=== PATIENT | male | born 1940 | race Caucasian/White ===

== ENCOUNTER 2020-08-10 11:04 | Inpatient (IN) | payer OTHER, SELFPAY ==
[~2020-08-10] VITALS: Ht 182.9 cm; Wt 89.8 kg
[~2020-08-10 11:04] MED LIST: ASPI-1155 PO; LOSA25TA3 PO; METO100T PO; TRAM50TA92 PO; vit b12; vit d3 PO
[2020-08-10 11:24] VITALS: BP_SYST 92
[2020-08-10 12:49] LABS: BASOPHILS % (AUTO) 0.6 % (0.0-2.0); EOSINOPHILS % (AUTO) 0.1 % (0.0-4.0); HEMATOCRIT 38.4 % (36-54); HEMOGLOBIN 12.4 g/dL (14.0-18.0); LYMPHOCYTES # (AUTO) 0.5 K/uL (1.0-5.5); LYMPHOCYTES % (AUTO) 5.4 % (20.5-51.5); MEAN CORPUSCULAR HEMOGLOBIN 32 pg (27-31); MEAN CORPUSCULAR HGB CONC 32 % (32-36); MEAN CORPUSCULAR VOLUME 99 fL (79.0-98.0); MONOCYTES % (AUTO) 11.6 % (1.7-9.3); NEUTROPHILS # (AUTO) 6.9 K/uL (1.8-7.7); NEUTROPHILS % (AUTO) 82.3 % (40.0-70.0); PLATELET COUNT (AUTO) 321 K/uL (130-430); RED BLOOD CELL COUNT(AUTO) 3.88 MIL/uL (4.2-6.2); RED CELL DISTRIBUTION WIDTH 14.5 % (9.0-15.0); WHITE BLOOD COUNT (AUTO) 8.4 K/uL (4.8-10.8)
[2020-08-10 12:56] LABS: ANION GAP 8 (5-15); CALCIUM 8.4 mg/dL (8.4-11.0); CHLORIDE 102 mmol/L (98-107); CREATININE 1.01 mg/dL (0.55-1.30); GLUCOSE 108 mg/dL (70-99); POTASSIUM 3.7 mmol/L (3.5-5.1); SODIUM SERUM 138 mmol/L (136-145); UREA NITROGEN, BLOOD 20 mg/dL (8-21)
[2020-08-10 13:01] LABS: INR 2.4 (0.80-1.20)
[2020-08-10 13:04] LABS: ALANINE AMINOTRANSFERASE 22 U/L (12-78); ALBUMIN 2.5 g/dL (3.4-4.8); ASPARTATE AMINOTRANSFERASE 31 U/L (10-37); BILIRUBIN,DIRECT 0.3 mg/dL (0.0-0.3); LIPASE 93 U/L (73-393); TOTAL BILIRUBIN 0.9 mg/dL (0.0-1.0)
[2020-08-10] MEDS ORDERED: PIPERACILLIN/TAZO 4.5 GM in NS 100 ML IV ONE (14:15)
[2020-08-10] MEDS ORDERED: VANCOMYCIN HCL 1,000 MG in NS 250 ML IV ONE (14:15)
[2020-08-10] MEDS ORDERED: VANCOMYCIN HCL 1000 MG/VIAL IV ONE (14:19)
[2020-08-10] MEDS ORDERED: PIPERACILLIN/TAZOBACTAM 4.5 GM/VIAL (ZOSYN) IV ONE (14:19)
[2020-08-10 17:26] LABS: HEMOGLOBIN 12.4 g/dL (14.0-18.0)
[2020-08-10] MEDS ORDERED: MORPHINE 2 MG/ML INJ. SYRINGE IVP PRN (17:30)
[2020-08-10] MEDS ORDERED: METOCLOPRAMIDE HCL 10 MG/2 ML VIAL IVP PRN (17:30)
[2020-08-10] MEDS ORDERED: ONDANSETRON HCL 4 MG/2 ML VIAL IVP PRN (17:30)
[2020-08-10] MEDS ORDERED: MORPHINE 4 MG/ML INJ. SYRINGE IVP PRN (17:30)
[2020-08-10] MEDS ORDERED: DILT-33 PO (18:10)
[2020-08-10] MEDS ORDERED: HYDR-4272 PO (18:10)
[2020-08-10] MEDS ORDERED: HYDR-1189 PO (18:10)
[2020-08-10] MEDS ORDERED: METO-544 PO (18:10)
[2020-08-10] MEDS ORDERED: WARF3TAB2 PO (18:10)
[2020-08-10] MEDS ORDERED: TRAM50TA2 PO (18:10)
[2020-08-10] MEDS ORDERED: CALC-17 PO (18:10)
[2020-08-10] MEDS ORDERED: ROSU5TAB13 PO (18:10)
[2020-08-10] MEDS ORDERED: PRED5DRO25 (18:10)
[2020-08-10] MEDS ORDERED: metroNIDAZOLE 500 mg/NS 200 ML IV ONE (21:53)
[2020-08-10] MEDS ORDERED: LEVOFLOXACIN 500 MG/D5W 100 ML IV ONE (21:53)
[2020-08-10] MEDS ORDERED: FLU VACC QS2020-21(65UP)/PF 0.7 ML/SYRINGE I.M. PRN (22:00)
[2020-08-10] MEDS: LEVOFLOXACIN 500 MG/D5W 100 ML IV SCH (22:13)
[2020-08-10] MEDS: D5NS 1,000 ML IV SCH (22:13)
[2020-08-10] MEDS: metroNIDAZOLE 500 mg/NS 100 ML IV SCH (22:15)
[2020-08-11 04:05] VITALS: BP_SYST 142
[2020-08-11] MEDS: D5NS 1,000 ML IV SCH ×4 (05:50→20:28)
[2020-08-11] MEDS: metroNIDAZOLE 500 mg/NS 100 ML IV SCH ×3 (05:51→20:27)
[2020-08-11 08:00] VITALS: BP_SYST 137
[2020-08-11] MEDS: LOSARTAN POTASSIUM 25 MG TABLET PO SCH (09:53)
[2020-08-11] MEDS: METOPROLOL TARTRATE 50 MG TABLET PO SCH (09:54)
[2020-08-11 12:00] VITALS: BP_SYST 151
[2020-08-11 16:00] VITALS: BP_SYST 147
[2020-08-11] MEDS: LEVOFLOXACIN 500 MG/D5W 100 ML IV SCH (18:10)
[2020-08-11 20:00] VITALS: BP_SYST 144
[2020-08-12] VITALS: BP_SYST 147
[2020-08-12] MEDS: metroNIDAZOLE 500 mg/NS 100 ML IV SCH ×3 (04:45→20:39)
[2020-08-12] MEDS: D5NS 1,000 ML IV SCH ×2 (04:45→22:12)
[2020-08-12 07:06] LABS: BASOPHILS % (AUTO) 0.5 % (0.0-2.0); EOSINOPHILS % (AUTO) 0.1 % (0.0-4.0); HEMATOCRIT 35.9 % (36-54); LYMPHOCYTES # (AUTO) 0.4 K/uL (1.0-5.5); MEAN CORPUSCULAR HEMOGLOBIN 33 pg (27-31); MEAN CORPUSCULAR HGB CONC 34 % (32-36); MONOCYTES # (AUTO) 0.7 K/uL (0.0-1.0); MONOCYTES % (AUTO) 10.3 % (1.7-9.3); NEUTROPHILS # (AUTO) 5.2 K/uL (1.8-7.7); NEUTROPHILS % (AUTO) 82.1 % (40.0-70.0); PLATELET COUNT (AUTO) 273 K/uL (130-430); RED BLOOD CELL COUNT(AUTO) 3.68 MIL/uL (4.2-6.2); RED CELL DISTRIBUTION WIDTH 14.6 % (9.0-15.0); WHITE BLOOD COUNT (AUTO) 6.3 K/uL (4.8-10.8)
[2020-08-12 07:28] LABS: ANION GAP 8 (5-15); CALCIUM 7.7 mg/dL (8.4-11.0); CHLORIDE 105 mmol/L (98-107); GLUCOSE 110 mg/dL (70-99); SODIUM SERUM 140 mmol/L (136-145); UREA NITROGEN, BLOOD 11 mg/dL (8-21)
[2020-08-12 07:37] LABS: ALANINE AMINOTRANSFERASE 16 U/L (12-78); ALBUMIN 2.1 g/dL (3.4-4.8); ASPARTATE AMINOTRANSFERASE 25 U/L (10-37); LACTATE DEHYDROGENASE 183 U/L (85-227); TOTAL BILIRUBIN 0.6 mg/dL (0.0-1.0)
[2020-08-12 08:00] VITALS: BP_SYST 142
[2020-08-12 08:15] LABS: MEAN CORPUSCULAR VOLUME 97 fL (79.0-98.0)
[2020-08-12 08:29] LABS: POTASSIUM 2.7 mmol/L (3.5-5.1)
[2020-08-12 08:40] LABS: INR 4.3 (0.80-1.20); PROTHROMBIN TIME 42.2 SECS (9.5-12.5)
[2020-08-12 08:53] LABS: C-REACTIVE PROTEIN QUANT 8.7 mg/dL (0-0.5)
[2020-08-12] MEDS ORDERED: POTASSIUM CHLORIDE 20 MEQ TAB.PRT.SR ONE (09:15)
[2020-08-12] MEDS: LOSARTAN POTASSIUM 25 MG TABLET PO SCH (09:16)
[2020-08-12] MEDS: METOPROLOL TARTRATE 50 MG TABLET PO SCH (09:17)
[2020-08-12] MEDS ORDERED: POTASSIUM CHLORIDE 20 MEQ TAB.PRT.SR PO ONE (09:30)
[2020-08-12] MEDS ORDERED: HYDROcodone/ACETAMIN 5-325 MG TAB (NORCO/ VICODIN) PO PRN (11:30)
[2020-08-12 13:21] VITALS: BP_SYST 154
[2020-08-12 16:30] VITALS: BP_SYST 148
[2020-08-12] MEDS: LEVOFLOXACIN 500 MG/D5W 100 ML IV SCH (18:39)
[2020-08-12 20:00] VITALS: BP_SYST 143
[2020-08-13] VITALS: BP_SYST 155
[2020-08-13] MEDS: metroNIDAZOLE 500 mg/NS 100 ML IV SCH ×3 (04:00→20:50)
[2020-08-13 08:00] VITALS: BP_SYST 137
[2020-08-13] MEDS: LOSARTAN POTASSIUM 25 MG TABLET PO SCH (08:54)
[2020-08-13] MEDS: METOPROLOL TARTRATE 50 MG TABLET PO SCH (08:54)
[2020-08-13 11:41] LABS: BASOPHILS % (AUTO) 0.3 % (0.0-2.0); EOSINOPHILS % (AUTO) 0.2 % (0.0-4.0); HEMATOCRIT 39.1 % (36-54); HEMOGLOBIN 12.9 g/dL (14.0-18.0); LYMPHOCYTES # (AUTO) 0.7 K/uL (1.0-5.5); LYMPHOCYTES % (AUTO) 9.2 % (20.5-51.5); MEAN CORPUSCULAR HEMOGLOBIN 32 pg (27-31); MEAN CORPUSCULAR HGB CONC 33 % (32-36); MEAN CORPUSCULAR VOLUME 97 fL (79.0-98.0); MONOCYTES # (AUTO) 0.6 K/uL (0.0-1.0); MONOCYTES % (AUTO) 8.2 % (1.7-9.3); NEUTROPHILS # (AUTO) 6.2 K/uL (1.8-7.7); NEUTROPHILS % (AUTO) 82.1 % (40.0-70.0); PLATELET COUNT (AUTO) 308 K/uL (130-430); RED BLOOD CELL COUNT(AUTO) 4.01 MIL/uL (4.2-6.2); RED CELL DISTRIBUTION WIDTH 14.6 % (9.0-15.0); WHITE BLOOD COUNT (AUTO) 7.6 K/uL (4.8-10.8)
[2020-08-13 12:00] VITALS: BP_SYST 136
[2020-08-13] MEDS ORDERED: CHOLESTYRAMINE/SUCROSE 4 GM/PACKET PO ONE (12:00)
[2020-08-13 12:17] LABS: ANION GAP 5 (5-15); CALCIUM 7.5 mg/dL (8.4-11.0); CHLORIDE 107 mmol/L (98-107); CREATININE 0.76 mg/dL (0.55-1.30); GLUCOSE 123 mg/dL (70-99); POTASSIUM 3.2 mmol/L (3.5-5.1); SODIUM SERUM 138 mmol/L (136-145); UREA NITROGEN, BLOOD 9 mg/dL (8-21)
[2020-08-13 12:23] LABS: ALANINE AMINOTRANSFERASE 19 U/L (12-78); ALBUMIN 2.2 g/dL (3.4-4.8); ASPARTATE AMINOTRANSFERASE 33 U/L (10-37); TOTAL BILIRUBIN 0.7 mg/dL (0.0-1.0)
[2020-08-13] MEDS: D5NS 1,000 ML IV SCH (12:30)
[2020-08-13 16:00] VITALS: BP_SYST 136
[2020-08-13] MEDS: DEXAMETHASONE SOD PHOSPHATE 10 MG/ML VIAL IVP SCH (16:18)
[2020-08-13] MEDS ORDERED: POTASSIUM CHLORIDE 60 MEQ in NS 500 ML IV ONE (17:00)
[2020-08-13 20:00] VITALS: BP_SYST 122
[2020-08-13] MEDS: LEVOFLOXACIN 500 MG/D5W 100 ML IV SCH (20:08)
[2020-08-13] MEDS: CHOLESTYRAMINE/SUCROSE 4 GM/PACKET PO SCH (20:50)
[2020-08-14] VITALS (7 sets, daily range): BP systolic 108–170
[2020-08-14] MEDS: D5NS 1,000 ML IV SCH ×2 (04:09)
[2020-08-14] MEDS: metroNIDAZOLE 500 mg/NS 100 ML IV SCH ×3 (04:10→21:00)
[2020-08-14] MEDS: LOSARTAN POTASSIUM 25 MG TABLET PO SCH (04:12)
[2020-08-14 07:01] LABS: BASOPHILS % (AUTO) 0.2 % (0.0-2.0); HEMATOCRIT 38.9 % (36-54); HEMOGLOBIN 12.8 g/dL (14.0-18.0); LYMPHOCYTES # (AUTO) 0.4 K/uL (1.0-5.5); LYMPHOCYTES % (AUTO) 3.1 % (20.5-51.5); MEAN CORPUSCULAR HEMOGLOBIN 32 pg (27-31); MEAN CORPUSCULAR HGB CONC 33 % (32-36); MEAN CORPUSCULAR VOLUME 97 fL (79.0-98.0); MONOCYTES # (AUTO) 0.6 K/uL (0.0-1.0); MONOCYTES % (AUTO) 5.3 % (1.7-9.3); NEUTROPHILS # (AUTO) 10.3 K/uL (1.8-7.7); NEUTROPHILS % (AUTO) 91.4 % (40.0-70.0); PLATELET COUNT (AUTO) 295 K/uL (130-430); RED CELL DISTRIBUTION WIDTH 14.8 % (9.0-15.0); WHITE BLOOD COUNT (AUTO) 11.3 K/uL (4.8-10.8)
[2020-08-14] MEDS: METOPROLOL TARTRATE 50 MG TABLET PO SCH (08:02)
[2020-08-14 08:03] LABS: ALANINE AMINOTRANSFERASE 15 U/L (12-78); ASPARTATE AMINOTRANSFERASE 23 U/L (10-37); CALCIUM 8.1 mg/dL (8.4-11.0); CHLORIDE 109 mmol/L (98-107); CREATININE 0.87 mg/dL (0.55-1.30); GLUCOSE 128 mg/dL (70-99); LACTATE DEHYDROGENASE 215 U/L (85-227); POTASSIUM 3.8 mmol/L (3.5-5.1); SODIUM SERUM 141 mmol/L (136-145); TOTAL BILIRUBIN 0.6 mg/dL (0.0-1.0); UREA NITROGEN, BLOOD 13 mg/dL (8-21)
[2020-08-14] MEDS: CHOLESTYRAMINE/SUCROSE 4 GM/PACKET PO SCH ×2 (08:03→21:00)
[2020-08-14 08:18] LABS: ANION GAP 10 (5-15)
[2020-08-14] MEDS ORDERED: FUROSEMIDE 20 MG/2 ML VIAL IVP ONE (08:45)
[2020-08-14 10:29] LABS: C-REACTIVE PROTEIN QUANT 11.7 mg/dL (0-0.5)
[2020-08-14] MEDS: DEXAMETHASONE SOD PHOSPHATE 10 MG/ML VIAL IVP SCH (14:07)
[2020-08-14] MEDS: LEVOFLOXACIN 500 MG/D5W 100 ML IV SCH (17:55)
[2020-08-14] MEDS ORDERED: KCL 20 mEq in 100 mL (PREMIX) 100 ML IV ONE (18:00)
[2020-08-14] MEDS ORDERED: MAGNESIUM SULFATE 1 GM/2 ML VIAL IVP ONE (18:00)
[2020-08-14] MEDS ORDERED: MAGNESIUM SULFATE 50 ML IV ONE (18:30)
[2020-08-14] MEDS ORDERED: METOPROLOL TARTRATE 50 MG TABLET PO ONE (18:30)
[2020-08-14] MEDS ORDERED: METOPROLOL TARTRATE 50 MG TABLET ONE (18:34)
[2020-08-14] MEDS: APIXABAN 2.5 MG TABLET PO SCH (21:00)
[2020-08-15] VITALS: BP_SYST 141
[2020-08-15] MEDS: metroNIDAZOLE 500 mg/NS 100 ML IV SCH ×3 (04:45→20:45)
[2020-08-15] MEDS: LOSARTAN POTASSIUM 25 MG TABLET PO SCH (08:07)
[2020-08-15] MEDS: FUROSEMIDE 40 MG TABLET PO SCH (08:07)
[2020-08-15] MEDS: CHOLESTYRAMINE/SUCROSE 4 GM/PACKET PO SCH ×2 (08:08→20:45)
[2020-08-15] MEDS: METOPROLOL TARTRATE 50 MG TABLET PO SCH (08:08)
[2020-08-15 08:13] LABS: BASOPHILS % (AUTO) 0.2 % (0.0-2.0); HEMOGLOBIN 12.7 g/dL (14.0-18.0); LYMPHOCYTES # (AUTO) 0.5 K/uL (1.0-5.5); LYMPHOCYTES % (AUTO) 6.5 % (20.5-51.5); MEAN CORPUSCULAR HEMOGLOBIN 32 pg (27-31); MEAN CORPUSCULAR HGB CONC 33 % (32-36); MEAN CORPUSCULAR VOLUME 97 fL (79.0-98.0); MONOCYTES # (AUTO) 0.8 K/uL (0.0-1.0); MONOCYTES % (AUTO) 9.2 % (1.7-9.3); NEUTROPHILS # (AUTO) 6.9 K/uL (1.8-7.7); NEUTROPHILS % (AUTO) 84.1 % (40.0-70.0); PLATELET COUNT (AUTO) 315 K/uL (130-430); RED BLOOD CELL COUNT(AUTO) 3.92 MIL/uL (4.2-6.2); RED CELL DISTRIBUTION WIDTH 14.7 % (9.0-15.0); WHITE BLOOD COUNT (AUTO) 8.2 K/uL (4.8-10.8)
[2020-08-15 08:15] VITALS: BP_SYST 146
[2020-08-15 09:00] LABS: ALANINE AMINOTRANSFERASE 10 U/L (12-78); ANION GAP 8 (5-15); ASPARTATE AMINOTRANSFERASE 18 U/L (10-37); CALCIUM 8.4 mg/dL (8.4-11.0); CHLORIDE 109 mmol/L (98-107); CREATININE 0.86 mg/dL (0.55-1.30); GLUCOSE 145 mg/dL (70-99); POTASSIUM 3.8 mmol/L (3.5-5.1); SODIUM SERUM 142 mmol/L (136-145); THYROID STIMULATING HORMONE 1.36 uIu/mL (0.36-3.74); TOTAL BILIRUBIN 0.3 mg/dL (0.0-1.0); UREA NITROGEN, BLOOD 18 mg/dL (8-21)
[2020-08-15] MEDS: APIXABAN 2.5 MG TABLET PO SCH (09:16)
[2020-08-15 12:40] VITALS: BP_SYST 129
[2020-08-15 13:13] LABS: CHOLESTEROL 76 mg/dL (<200); HDL CHOLESTEROL 28 mg/dL (>45); LDL CHOLESTEROL 42 mg/dL (<100); TRIGLYCERIDES 41 mg/dL (30-150)
[2020-08-15 13:23] LABS: INR > 9.0 (0.80-1.20); PROTHROMBIN TIME > 90.0 SECS (9.5-12.5)
[2020-08-15] MEDS ORDERED: PHYTONADIONE 10 MG/ML AMP PO ONE (14:00)
[2020-08-15] MEDS: DEXAMETHASONE SOD PHOSPHATE 10 MG/ML VIAL IVP SCH (14:42)
[2020-08-15 16:35] VITALS: BP_SYST 139
[2020-08-15] MEDS: LEVOFLOXACIN 500 MG/D5W 100 ML IV SCH (19:30)
[2020-08-15 20:00] VITALS: BP_SYST 139
[2020-08-16] VITALS (18 sets, daily range): BP systolic 122–153
[2020-08-16] MEDS: metroNIDAZOLE 500 mg/NS 100 ML IV SCH ×3 (03:49→22:09)
[2020-08-16] MEDS ORDERED: FUROSEMIDE 40 MG/4 ML VIAL IVP ONE ×2 (06:00→09:00)
[2020-08-16] MEDS ORDERED: FUROSEMIDE 40 MG/4 ML VIAL ONE (06:17)
[2020-08-16] MEDS: CHOLESTYRAMINE/SUCROSE 4 GM/PACKET PO SCH ×2 (08:24→23:04)
[2020-08-16] MEDS ORDERED: PHYTONADIONE 10 MG/ML AMP PO ONE (08:30)
[2020-08-16 08:54] LABS: ALANINE AMINOTRANSFERASE 7 U/L (12-78); ALBUMIN 2.1 g/dL (3.4-4.8); ANION GAP 7 (5-15); ASPARTATE AMINOTRANSFERASE 17 U/L (10-37); CALCIUM 8.4 mg/dL (8.4-11.0); CHLORIDE 111 mmol/L (98-107); CREATININE 0.81 mg/dL (0.55-1.30); GLUCOSE 152 mg/dL (70-99); POTASSIUM 3.9 mmol/L (3.5-5.1); SODIUM SERUM 142 mmol/L (136-145); TOTAL BILIRUBIN 0.4 mg/dL (0.0-1.0); UREA NITROGEN, BLOOD 22 mg/dL (8-21)
[2020-08-16] MEDS: LOSARTAN POTASSIUM 25 MG TABLET PO SCH (08:58)
[2020-08-16] MEDS: FUROSEMIDE 40 MG TABLET PO SCH (09:00)
[2020-08-16] MEDS: METOPROLOL TARTRATE 50 MG TABLET PO SCH (09:06)
[2020-08-16 13:15] LABS: INR 2.9 (0.80-1.20); PROTHROMBIN TIME 28.5 SECS (9.5-12.5)
[2020-08-16] MEDS: DEXAMETHASONE SOD PHOSPHATE 10 MG/ML VIAL IVP SCH (15:38)
[2020-08-16] MEDS: LEVOFLOXACIN 500 MG/D5W 100 ML IV SCH (21:21)
[2020-08-17] VITALS (22 sets, daily range): BP systolic 128–154
[2020-08-17] MEDS: metroNIDAZOLE 500 mg/NS 100 ML IV SCH (06:28)
[2020-08-17 07:02] LABS: BASOPHILS % (AUTO) 0.2 % (0.0-2.0); HEMATOCRIT 37.5 % (36-54); HEMOGLOBIN 12.4 g/dL (14.0-18.0); LYMPHOCYTES # (AUTO) 0.3 K/uL (1.0-5.5); LYMPHOCYTES % (AUTO) 3.2 % (20.5-51.5); MEAN CORPUSCULAR HEMOGLOBIN 32 pg (27-31); MEAN CORPUSCULAR HGB CONC 33 % (32-36); MEAN CORPUSCULAR VOLUME 96 fL (79.0-98.0); MONOCYTES # (AUTO) 0.7 K/uL (0.0-1.0); MONOCYTES % (AUTO) 7.3 % (1.7-9.3); NEUTROPHILS % (AUTO) 89.3 % (40.0-70.0); PLATELET COUNT (AUTO) 357 K/uL (130-430); RED CELL DISTRIBUTION WIDTH 14.4 % (9.0-15.0)
[2020-08-17 07:09] LABS: INR 1.7 (0.80-1.20); PROTHROMBIN TIME 16.9 SECS (9.5-12.5)
[2020-08-17 07:30] LABS: ALANINE AMINOTRANSFERASE 9 U/L (12-78); ANION GAP 5 (5-15); ASPARTATE AMINOTRANSFERASE 14 U/L (10-37); CALCIUM 7.9 mg/dL (8.4-11.0); CHLORIDE 110 mmol/L (98-107); CREATININE 0.77 mg/dL (0.55-1.30); GLUCOSE 151 mg/dL (70-99); POTASSIUM 3.8 mmol/L (3.5-5.1); SODIUM SERUM 143 mmol/L (136-145); TOTAL BILIRUBIN 0.4 mg/dL (0.0-1.0); UREA NITROGEN, BLOOD 24 mg/dL (8-21)
[2020-08-17] MEDS: DEXAMETHASONE SOD PHOSPHATE 10 MG/ML VIAL IVP SCH (08:37)
[2020-08-17] MEDS: LOSARTAN POTASSIUM 25 MG TABLET PO SCH (08:38)
[2020-08-17] MEDS: METOPROLOL TARTRATE 50 MG TABLET PO SCH (08:39)
[2020-08-17] MEDS: CHOLESTYRAMINE/SUCROSE 4 GM/PACKET PO SCH ×2 (08:39→20:41)
[2020-08-17] MEDS: FUROSEMIDE 40 MG TABLET PO SCH (08:39)
[2020-08-17] MEDS: APIXABAN 2.5 MG TABLET PO SCH (20:40)
[2020-08-18] VITALS (25 sets, daily range): BP systolic 64–158
[2020-08-18] MEDS: LOSARTAN POTASSIUM 25 MG TABLET PO SCH (08:41)
[2020-08-18] MEDS: FUROSEMIDE 40 MG TABLET PO SCH (08:42)
[2020-08-18] MEDS: CHOLESTYRAMINE/SUCROSE 4 GM/PACKET PO SCH ×2 (08:42→21:47)
[2020-08-18] MEDS: METOPROLOL TARTRATE 50 MG TABLET PO SCH (08:42)
[2020-08-18] MEDS: DEXAMETHASONE SOD PHOSPHATE 10 MG/ML VIAL IVP SCH (08:47)
[2020-08-18] MEDS: APIXABAN 2.5 MG TABLET PO SCH (08:47)
[2020-08-18 09:21] LABS: INR 1.6 (0.80-1.20); PROTHROMBIN TIME 16.1 SECS (9.5-12.5)
[2020-08-18] MEDS ORDERED: NOREPINEPHRINE 4 MG/4 ML VIAL IV ONE (17:23)
[2020-08-18] MEDS ORDERED: NACL 0.9% 1,000 ML IV ONE (17:45)
[2020-08-18] MEDS: PROPOFOL DRIP 100 ML IV PRN (19:42)
[2020-08-18 20:29] LABS: INR 1.8 (0.80-1.20); PROTHROMBIN TIME 17.8 SECS (9.5-12.5)
[2020-08-18] MEDS ORDERED: METOPROLOL TARTRATE 5 MG/5 ML VIAL IVP ONE (21:30)
[2020-08-18] MEDS ORDERED: METOPROLOL TARTRATE 5 MG/5 ML VIAL IVP PRN (21:30)
[2020-08-18] MEDS: MORPHINE I.V. DRIP 100 ML IV PRN (21:41)
[2020-08-18] MEDS: NACL 0.9% 1,000 ML IV SCH (23:49)
[2020-08-19] VITALS (30 sets, daily range): BP systolic 94–153
[2020-08-19] MEDS: PIPERACILLIN/TAZO 3.375/DEX-IS 50 ML IV SCH ×3 (06:00→17:00)
[2020-08-19 07:04] LABS: BASOPHILS % (AUTO) 0.1 % (0.0-2.0); EOSINOPHILS % (AUTO) 0.2 % (0.0-4.0); HEMOGLOBIN 12.3 g/dL (14.0-18.0); LYMPHOCYTES # (AUTO) 0.4 K/uL (1.0-5.5); LYMPHOCYTES % (AUTO) 3.1 % (20.5-51.5); MEAN CORPUSCULAR HEMOGLOBIN 32 pg (27-31); MEAN CORPUSCULAR HGB CONC 33 % (32-36); MEAN CORPUSCULAR VOLUME 96 fL (79.0-98.0); MONOCYTES # (AUTO) 1.3 K/uL (0.0-1.0); MONOCYTES % (AUTO) 9.6 % (1.7-9.3); NEUTROPHILS # (AUTO) 12.2 K/uL (1.8-7.7); PLATELET COUNT (AUTO) 373 K/uL (130-430); RED BLOOD CELL COUNT(AUTO) 3.84 MIL/uL (4.2-6.2); RED CELL DISTRIBUTION WIDTH 14.9 % (9.0-15.0)
[2020-08-19 08:07] LABS: ALANINE AMINOTRANSFERASE 8 U/L (12-78); ALBUMIN 1.9 g/dL (3.4-4.8); ANION GAP 6 (5-15); ASPARTATE AMINOTRANSFERASE 17 U/L (10-37); CALCIUM 8.2 mg/dL (8.4-11.0); CHLORIDE 113 mmol/L (98-107); CREATININE 0.88 mg/dL (0.55-1.30); GLUCOSE 165 mg/dL (70-99); POTASSIUM 3.8 mmol/L (3.5-5.1); SODIUM SERUM 145 mmol/L (136-145); TOTAL BILIRUBIN 0.5 mg/dL (0.0-1.0); UREA NITROGEN, BLOOD 30 mg/dL (8-21)
[2020-08-19] MEDS: FUROSEMIDE 40 MG TABLET PO SCH (09:33)
[2020-08-19] MEDS: METOPROLOL TARTRATE 50 MG TABLET PO SCH (09:34)
[2020-08-19] MEDS: CHOLESTYRAMINE/SUCROSE 4 GM/PACKET PO SCH ×2 (09:34→20:23)
[2020-08-19] MEDS: LOSARTAN POTASSIUM 25 MG TABLET PO SCH (09:34)
[2020-08-19] MEDS: DEXAMETHASONE SOD PHOSPHATE 10 MG/ML VIAL IVP SCH (09:35)
[2020-08-19] MEDS: NACL 0.9% 1,000 ML IV SCH (10:59)
[2020-08-19] MEDS: PROPOFOL DRIP 100 ML IV PRN ×2 (11:03→16:58)
[2020-08-19] MEDS: ENOXAPARIN SODIUM 40 MG/0.4 ML SYRINGE SUBCUT SCH (11:08)
[2020-08-20] VITALS (31 sets, daily range): BP systolic 78–174
[2020-08-20] MEDS: PIPERACILLIN/TAZO 3.375/DEX-IS 50 ML IV SCH ×5 (00:01→23:01)
[2020-08-20] MEDS: PROPOFOL DRIP 100 ML IV PRN ×4 (00:47→23:01)
[2020-08-20] MEDS: NACL 0.9% 1,000 ML IV SCH ×2 (03:50→17:47)
[2020-08-20] MEDS: MORPHINE I.V. DRIP 100 ML IV PRN (03:52)
[2020-08-20] MEDS: FUROSEMIDE 40 MG TABLET PO SCH (09:35)
[2020-08-20] MEDS: ENOXAPARIN SODIUM 40 MG/0.4 ML SYRINGE SUBCUT SCH (09:35)
[2020-08-20] MEDS: LOSARTAN POTASSIUM 25 MG TABLET PO SCH (09:36)
[2020-08-20] MEDS: DEXAMETHASONE SOD PHOSPHATE 10 MG/ML VIAL IVP SCH (09:36)
[2020-08-20] MEDS: CHOLESTYRAMINE/SUCROSE 4 GM/PACKET PO SCH ×2 (09:36→20:28)
[2020-08-20] MEDS: METOPROLOL TARTRATE 50 MG TABLET PO SCH (09:40)
[2020-08-20] MEDS ORDERED: ROCURONIUM BROMIDE 10 MG/ML (ZEMURON) IV ONE (12:18)
[2020-08-20] MEDS ORDERED: ETOMIDATE 20 MG/ 10 ML VIAL (AMIDATE) IVP ONE (12:18)
[2020-08-20] MEDS ORDERED: NOREPINEPHRINE 4 MG/4 ML VIAL IV ONE (19:42)
[2020-08-20] MEDS: NOREPINEPHRINE BITARTRATE 8 MG in NS 242 ML IV PRN (20:03)
[2020-08-21] VITALS (32 sets, daily range): BP systolic 98–160
[2020-08-21] MEDS: NACL 0.9% 1,000 ML IV SCH ×2 (04:50→23:57)
[2020-08-21] MEDS: PIPERACILLIN/TAZO 3.375/DEX-IS 50 ML IV SCH ×3 (05:11→23:52)
[2020-08-21] MEDS: PROPOFOL DRIP 100 ML IV PRN ×2 (05:12→15:48)
[2020-08-21 06:40] LABS: BASOPHILS % (AUTO) 0.4 % (0.0-2.0); HEMOGLOBIN 13.4 g/dL (14.0-18.0); LYMPHOCYTES # (AUTO) 0.4 K/uL (1.0-5.5); LYMPHOCYTES % (AUTO) 3.8 % (20.5-51.5); MEAN CORPUSCULAR HEMOGLOBIN 32 pg (27-31); MEAN CORPUSCULAR HGB CONC 33 % (32-36); MEAN CORPUSCULAR VOLUME 97 fL (79.0-98.0); MONOCYTES # (AUTO) 0.8 K/uL (0.0-1.0); MONOCYTES % (AUTO) 8.3 % (1.7-9.3); NEUTROPHILS # (AUTO) 8.7 K/uL (1.8-7.7); NEUTROPHILS % (AUTO) 87.5 % (40.0-70.0); PLATELET COUNT (AUTO) 286 K/uL (130-430); RED BLOOD CELL COUNT(AUTO) 4.14 MIL/uL (4.2-6.2); RED CELL DISTRIBUTION WIDTH 15.1 % (9.0-15.0)
[2020-08-21 08:21] LABS: ALANINE AMINOTRANSFERASE 12 U/L (12-78); ALBUMIN 1.9 g/dL (3.4-4.8); ANION GAP 7 (5-15); ASPARTATE AMINOTRANSFERASE 16 U/L (10-37); CALCIUM 7.7 mg/dL (8.4-11.0); CHLORIDE 112 mmol/L (98-107); CREATININE 0.92 mg/dL (0.55-1.30); GLUCOSE 175 mg/dL (70-99); POTASSIUM 3.6 mmol/L (3.5-5.1); SODIUM SERUM 146 mmol/L (136-145); TOTAL BILIRUBIN 0.8 mg/dL (0.0-1.0); UREA NITROGEN, BLOOD 28 mg/dL (8-21)
[2020-08-21] MEDS: DEXAMETHASONE SOD PHOSPHATE 10 MG/ML VIAL IVP SCH (08:44)
[2020-08-21] MEDS: METOPROLOL TARTRATE 50 MG TABLET PO SCH (08:46)
[2020-08-21] MEDS: LOSARTAN POTASSIUM 25 MG TABLET PO SCH (08:47)
[2020-08-21] MEDS: CHOLESTYRAMINE/SUCROSE 4 GM/PACKET PO SCH ×2 (08:47→20:41)
[2020-08-21] MEDS: FUROSEMIDE 40 MG TABLET PO SCH (08:47)
[2020-08-21] MEDS: ENOXAPARIN SODIUM 40 MG/0.4 ML SYRINGE SUBCUT SCH (08:48)
[2020-08-22] VITALS (29 sets, daily range): BP systolic 90–141
[2020-08-22] MEDS ORDERED: NOREPINEPHRINE 4 MG/4 ML VIAL IV ONE (00:05)
[2020-08-22] MEDS: NOREPINEPHRINE BITARTRATE 8 MG in NS 242 ML IV PRN (00:07)
[2020-08-22] MEDS: PIPERACILLIN/TAZO 3.375/DEX-IS 50 ML IV SCH ×3 (05:07→17:47)
[2020-08-22 06:59] LABS: BASOPHILS % (AUTO) 0.1 % (0.0-2.0); EOSINOPHILS % (AUTO) 0.2 % (0.0-4.0); HEMATOCRIT 38.1 % (36-54); HEMOGLOBIN 12.5 g/dL (14.0-18.0); LYMPHOCYTES # (AUTO) 0.4 K/uL (1.0-5.5); LYMPHOCYTES % (AUTO) 3.6 % (20.5-51.5); MEAN CORPUSCULAR HEMOGLOBIN 32 pg (27-31); MEAN CORPUSCULAR HGB CONC 33 % (32-36); MEAN CORPUSCULAR VOLUME 97 fL (79.0-98.0); MONOCYTES # (AUTO) 1.1 K/uL (0.0-1.0); MONOCYTES % (AUTO) 10.2 % (1.7-9.3); NEUTROPHILS # (AUTO) 9.4 K/uL (1.8-7.7); NEUTROPHILS % (AUTO) 85.9 % (40.0-70.0); PLATELET COUNT (AUTO) 261 K/uL (130-430); RED BLOOD CELL COUNT(AUTO) 3.92 MIL/uL (4.2-6.2); RED CELL DISTRIBUTION WIDTH 15.8 % (9.0-15.0); WHITE BLOOD COUNT (AUTO) 10.9 K/uL (4.8-10.8)
[2020-08-22 07:24] LABS: ALANINE AMINOTRANSFERASE 10 U/L (12-78); ALBUMIN 1.5 g/dL (3.4-4.8); ANION GAP 7 (5-15); ASPARTATE AMINOTRANSFERASE 14 U/L (10-37); CALCIUM 7.5 mg/dL (8.4-11.0); CHLORIDE 117 mmol/L (98-107); CREATININE 0.77 mg/dL (0.55-1.30); GLUCOSE 171 mg/dL (70-99); POTASSIUM 3.9 mmol/L (3.5-5.1); SODIUM SERUM 150 mmol/L (136-145); TOTAL BILIRUBIN 0.6 mg/dL (0.0-1.0); UREA NITROGEN, BLOOD 32 mg/dL (8-21)
[2020-08-22] MEDS: CHOLESTYRAMINE/SUCROSE 4 GM/PACKET PO SCH ×2 (08:46→20:06)
[2020-08-22] MEDS: METOPROLOL TARTRATE 50 MG TABLET PO SCH (08:46)
[2020-08-22] MEDS: LOSARTAN POTASSIUM 25 MG TABLET PO SCH (08:46)
[2020-08-22] MEDS: DEXAMETHASONE SOD PHOSPHATE 10 MG/ML VIAL IVP SCH (08:47)
[2020-08-22] MEDS: FUROSEMIDE 40 MG TABLET PO SCH ×2 (08:47→20:06)
[2020-08-22] MEDS: ENOXAPARIN SODIUM 40 MG/0.4 ML SYRINGE SUBCUT SCH (08:48)
[2020-08-22 08:52] LABS: C-REACTIVE PROTEIN QUANT 0.9 mg/dL (0-0.5)
[2020-08-22 11:17] LABS: ERYTHROCYTE SEDIMENTATION RATE 17 MM/HR (0-15)
[2020-08-22] MEDS: NACL 0.9% 1,000 ML IV SCH ×2 (14:37→17:47)
[2020-08-22] MEDS: MORPHINE I.V. DRIP 100 ML IV PRN (20:08)
[2020-08-23] VITALS (26 sets, daily range): BP systolic 90–174
[2020-08-23] MEDS: PIPERACILLIN/TAZO 3.375/DEX-IS 50 ML IV SCH ×4 (00:12→18:11)
[2020-08-23 07:31] LABS: BASOPHILS % (AUTO) 0.2 % (0.0-2.0); EOSINOPHILS % (AUTO) 0.1 % (0.0-4.0); HEMATOCRIT 38.2 % (36-54); HEMOGLOBIN 12.5 g/dL (14.0-18.0); LYMPHOCYTES # (AUTO) 0.5 K/uL (1.0-5.5); MEAN CORPUSCULAR HEMOGLOBIN 32 pg (27-31); MEAN CORPUSCULAR HGB CONC 33 % (32-36); MEAN CORPUSCULAR VOLUME 97 fL (79.0-98.0); MONOCYTES # (AUTO) 1.4 K/uL (0.0-1.0); MONOCYTES % (AUTO) 12.1 % (1.7-9.3); NEUTROPHILS # (AUTO) 9.5 K/uL (1.8-7.7); NEUTROPHILS % (AUTO) 83.6 % (40.0-70.0); PLATELET COUNT (AUTO) 244 K/uL (130-430); RED BLOOD CELL COUNT(AUTO) 3.95 MIL/uL (4.2-6.2); RED CELL DISTRIBUTION WIDTH 15.5 % (9.0-15.0); WHITE BLOOD COUNT (AUTO) 11.4 K/uL (4.8-10.8)
[2020-08-23 08:28] LABS: ERYTHROCYTE SEDIMENTATION RATE 20 MM/HR (0-15)
[2020-08-23] MEDS: CHOLESTYRAMINE/SUCROSE 4 GM/PACKET PO SCH ×2 (08:48→20:34)
[2020-08-23] MEDS: LOSARTAN POTASSIUM 25 MG TABLET PO SCH (08:49)
[2020-08-23] MEDS: FUROSEMIDE 40 MG TABLET PO SCH (08:50)
[2020-08-23] MEDS: ENOXAPARIN SODIUM 40 MG/0.4 ML SYRINGE SUBCUT SCH (08:51)
[2020-08-23] MEDS: METOPROLOL TARTRATE 50 MG TABLET PO SCH (08:51)
[2020-08-23] MEDS: DEXAMETHASONE SOD PHOSPHATE 10 MG/ML VIAL IVP SCH (08:52)
[2020-08-23 09:09] LABS: ALANINE AMINOTRANSFERASE 23 U/L (12-78); ALBUMIN 1.6 g/dL (3.4-4.8); ANION GAP 7 (5-15); ASPARTATE AMINOTRANSFERASE 31 U/L (10-37); CALCIUM 7.5 mg/dL (8.4-11.0); CHLORIDE 117 mmol/L (98-107); CREATININE 0.72 mg/dL (0.55-1.30); GLUCOSE 176 mg/dL (70-99); SODIUM SERUM 149 mmol/L (136-145); TOTAL BILIRUBIN 0.7 mg/dL (0.0-1.0); UREA NITROGEN, BLOOD 34 mg/dL (8-21)
[2020-08-23 12:24] LABS: C-REACTIVE PROTEIN QUANT 0.6 mg/dL (0-0.5)
[2020-08-23] MEDS: D5W 1,000 ML IV SCH (14:30)
[2020-08-23] MEDS: PROPOFOL DRIP 100 ML IV PRN (18:13)
[2020-08-23] MEDS: FUROSEMIDE 40 MG/4 ML VIAL IVP SCH (20:34)
[2020-08-24] VITALS (32 sets, daily range): BP systolic 96–144
[2020-08-24] MEDS: PIPERACILLIN/TAZO 3.375/DEX-IS 50 ML IV SCH ×4 (00:23→17:57)
[2020-08-24] MEDS: D5W 1,000 ML IV SCH ×2 (00:23→13:21)
[2020-08-24] MEDS: MORPHINE I.V. DRIP 100 ML IV PRN (06:24)
[2020-08-24 06:37] LABS: BASOPHILS % (AUTO) 0.2 % (0.0-2.0); EOSINOPHILS % (AUTO) 0.1 % (0.0-4.0); HEMATOCRIT 34.9 % (36-54); HEMOGLOBIN 11.4 g/dL (14.0-18.0); LYMPHOCYTES # (AUTO) 0.6 K/uL (1.0-5.5); LYMPHOCYTES % (AUTO) 5.6 % (20.5-51.5); MEAN CORPUSCULAR HEMOGLOBIN 32 pg (27-31); MEAN CORPUSCULAR HGB CONC 33 % (32-36); MEAN CORPUSCULAR VOLUME 98 fL (79.0-98.0); MONOCYTES # (AUTO) 1.4 K/uL (0.0-1.0); MONOCYTES % (AUTO) 13.4 % (1.7-9.3); NEUTROPHILS # (AUTO) 8.2 K/uL (1.8-7.7); NEUTROPHILS % (AUTO) 80.7 % (40.0-70.0); PLATELET COUNT (AUTO) 165 K/uL (130-430); RED BLOOD CELL COUNT(AUTO) 3.57 MIL/uL (4.2-6.2); RED CELL DISTRIBUTION WIDTH 15.9 % (9.0-15.0); WHITE BLOOD COUNT (AUTO) 10.2 K/uL (4.8-10.8)
[2020-08-24 07:35] LABS: ALANINE AMINOTRANSFERASE 27 U/L (12-78); ALBUMIN 1.4 g/dL (3.4-4.8); ANION GAP 8 (5-15); ASPARTATE AMINOTRANSFERASE 30 U/L (10-37); CALCIUM 7.7 mg/dL (8.4-11.0); CHLORIDE 112 mmol/L (98-107); CREATININE 0.78 mg/dL (0.55-1.30); GLUCOSE 213 mg/dL (70-99); POTASSIUM 3.7 mmol/L (3.5-5.1); SODIUM SERUM 145 mmol/L (136-145); TOTAL BILIRUBIN 0.6 mg/dL (0.0-1.0); UREA NITROGEN, BLOOD 37 mg/dL (8-21)
[2020-08-24 08:33] LABS: ERYTHROCYTE SEDIMENTATION RATE 18 MM/HR (0-15)
[2020-08-24] MEDS: METOPROLOL TARTRATE 50 MG TABLET PO SCH (11:39)
[2020-08-24] MEDS: LOSARTAN POTASSIUM 25 MG TABLET PO SCH (11:39)
[2020-08-24] MEDS: DEXAMETHASONE SOD PHOSPHATE 10 MG/ML VIAL IVP SCH (11:40)
[2020-08-24] MEDS: FUROSEMIDE 40 MG/4 ML VIAL IVP SCH ×2 (11:41→20:42)
[2020-08-24] MEDS: CHOLESTYRAMINE/SUCROSE 4 GM/PACKET PO SCH ×2 (11:41→20:42)
[2020-08-24] MEDS: ENOXAPARIN SODIUM 40 MG/0.4 ML SYRINGE SUBCUT SCH (11:41)
[2020-08-24 11:51] LABS: C-REACTIVE PROTEIN QUANT 0.8 mg/dL (0-0.5)
[2020-08-24] MEDS: DEXAMETHASONE SOD PHOSPHATE 4 MG/ML VIAL IVP SCH (12:03)
[2020-08-24] MEDS: PROPOFOL DRIP 100 ML IV PRN (15:58)
[2020-08-25] VITALS (35 sets, daily range): BP systolic 105–162
[2020-08-25] MEDS: PIPERACILLIN/TAZO 3.375/DEX-IS 50 ML IV SCH ×5 (00:06→23:49)
[2020-08-25] MEDS: MORPHINE I.V. DRIP 100 ML IV PRN ×2 (02:47→20:52)
[2020-08-25] MEDS: D5W 1,000 ML IV SCH ×2 (06:25→18:58)
[2020-08-25 07:16] LABS: BASOPHILS % (AUTO) 0.2 % (0.0-2.0); HEMOGLOBIN 11.5 g/dL (14.0-18.0)
[2020-08-25 07:20] LABS: EOSINOPHILS % (AUTO) 0.3 % (0.0-4.0); HEMATOCRIT 34.4 % (36-54); LYMPHOCYTES # (AUTO) 0.7 K/uL (1.0-5.5); LYMPHOCYTES % (AUTO) 5.9 % (20.5-51.5); MEAN CORPUSCULAR HEMOGLOBIN 32 pg (27-31); MEAN CORPUSCULAR HGB CONC 34 % (32-36); MEAN CORPUSCULAR VOLUME 96 fL (79.0-98.0); MONOCYTES # (AUTO) 1.4 K/uL (0.0-1.0); MONOCYTES % (AUTO) 11.8 % (1.7-9.3); NEUTROPHILS # (AUTO) 9.8 K/uL (1.8-7.7); NEUTROPHILS % (AUTO) 81.8 % (40.0-70.0); PLATELET COUNT (AUTO) 162 K/uL (130-430); RED BLOOD CELL COUNT(AUTO) 3.59 MIL/uL (4.2-6.2); RED CELL DISTRIBUTION WIDTH 15.5 % (9.0-15.0); WHITE BLOOD COUNT (AUTO) 11.9 K/uL (4.8-10.8)
[2020-08-25] MEDS: LOSARTAN POTASSIUM 25 MG TABLET PO SCH (09:21)
[2020-08-25] MEDS: METOPROLOL TARTRATE 50 MG TABLET PO SCH (09:21)
[2020-08-25] MEDS: CHOLESTYRAMINE/SUCROSE 4 GM/PACKET PO SCH ×2 (09:21→22:02)
[2020-08-25] MEDS: ENOXAPARIN SODIUM 40 MG/0.4 ML SYRINGE SUBCUT SCH (09:22)
[2020-08-25] MEDS: FUROSEMIDE 40 MG/4 ML VIAL IVP SCH ×2 (09:22→22:02)
[2020-08-25] MEDS: DEXAMETHASONE SOD PHOSPHATE 4 MG/ML VIAL IVP SCH (09:26)
[2020-08-25] MEDS ORDERED: METOPROLOL TARTRATE 5 MG/5 ML VIAL IVP PRN (09:45)
[2020-08-25 10:13] LABS: ANION GAP 9 (5-15); CALCIUM 7.5 mg/dL (8.4-11.0); CHLORIDE 107 mmol/L (98-107); CREATININE 0.74 mg/dL (0.55-1.30); GLUCOSE 195 mg/dL (70-99); POTASSIUM 3.6 mmol/L (3.5-5.1); SODIUM SERUM 141 mmol/L (136-145); UREA NITROGEN, BLOOD 38 mg/dL (8-21)
[2020-08-25 12:32] LABS: ERYTHROCYTE SEDIMENTATION RATE 23 MM/HR (0-15)
[2020-08-25 13:23] LABS: C-REACTIVE PROTEIN QUANT 0.6 mg/dL (0-0.5)
[2020-08-26] VITALS (32 sets, daily range): BP systolic 110–157
[2020-08-26] MEDS: PIPERACILLIN/TAZO 3.375/DEX-IS 50 ML IV SCH ×3 (06:04→17:50)
[2020-08-26 06:32] LABS: BASOPHILS % (AUTO) 0.1 % (0.0-2.0); EOSINOPHILS % (AUTO) 0.2 % (0.0-4.0); HEMOGLOBIN 11.2 g/dL (14.0-18.0); LYMPHOCYTES # (AUTO) 0.8 K/uL (1.0-5.5); MEAN CORPUSCULAR HEMOGLOBIN 32 pg (27-31); MEAN CORPUSCULAR HGB CONC 33 % (32-36); MEAN CORPUSCULAR VOLUME 96 fL (79.0-98.0); MONOCYTES # (AUTO) 1.8 K/uL (0.0-1.0); NEUTROPHILS % (AUTO) 79.7 % (40.0-70.0); PLATELET COUNT (AUTO) 154 K/uL (130-430); RED BLOOD CELL COUNT(AUTO) 3.54 MIL/uL (4.2-6.2); RED CELL DISTRIBUTION WIDTH 15.7 % (9.0-15.0); WHITE BLOOD COUNT (AUTO) 12.5 K/uL (4.8-10.8)
[2020-08-26 07:21] LABS: ALANINE AMINOTRANSFERASE 32 U/L (12-78); ALBUMIN 1.3 g/dL (3.4-4.8); ANION GAP 9 (5-15); ASPARTATE AMINOTRANSFERASE 29 U/L (10-37); CALCIUM 7.8 mg/dL (8.4-11.0); CHLORIDE 104 mmol/L (98-107); CREATININE 0.76 mg/dL (0.55-1.30); GLUCOSE 184 mg/dL (70-99); POTASSIUM 3.5 mmol/L (3.5-5.1); SODIUM SERUM 137 mmol/L (136-145); TOTAL BILIRUBIN 0.7 mg/dL (0.0-1.0); UREA NITROGEN, BLOOD 41 mg/dL (8-21)
[2020-08-26 08:59] LABS: ERYTHROCYTE SEDIMENTATION RATE 28 MM/HR (0-15)
[2020-08-26] MEDS ORDERED: DEXAMETHASONE SOD PHOSPHATE 4 MG/ML VIAL IV ONE (09:00)
[2020-08-26] MEDS: CHOLESTYRAMINE/SUCROSE 4 GM/PACKET PO SCH ×2 (09:13→21:00)
[2020-08-26] MEDS: LOSARTAN POTASSIUM 25 MG TABLET PO SCH (09:14)
[2020-08-26] MEDS: METOPROLOL TARTRATE 50 MG TABLET PO SCH (09:14)
[2020-08-26] MEDS: ENOXAPARIN SODIUM 40 MG/0.4 ML SYRINGE SUBCUT SCH (09:16)
[2020-08-26] MEDS: FUROSEMIDE 40 MG/4 ML VIAL IVP SCH ×2 (09:16→21:00)
[2020-08-26] MEDS: D5W 1,000 ML IV SCH (09:20)
[2020-08-26 10:40] LABS: C-REACTIVE PROTEIN QUANT 1.4 mg/dL (0-0.5)
[2020-08-26] MEDS: MORPHINE I.V. DRIP 100 ML IV PRN (11:51)
[2020-08-27] VITALS (32 sets, daily range): BP systolic 79–134
[2020-08-27] MEDS ORDERED: METOPROLOL TARTRATE 5 MG/5 ML VIAL IVP PRN ×2 (04:15)
[2020-08-27] MEDS: PIPERACILLIN/TAZO 3.375/DEX-IS 50 ML IV SCH ×5 (05:17→23:24)
[2020-08-27 06:05] LABS: BASOPHILS % (AUTO) 0.1 % (0.0-2.0); EOSINOPHILS % (AUTO) 0.2 % (0.0-4.0); HEMATOCRIT 34.1 % (36-54); HEMOGLOBIN 11.4 g/dL (14.0-18.0); LYMPHOCYTES # (AUTO) 0.9 K/uL (1.0-5.5); LYMPHOCYTES % (AUTO) 7.2 % (20.5-51.5); MEAN CORPUSCULAR HEMOGLOBIN 32 pg (27-31); MEAN CORPUSCULAR HGB CONC 34 % (32-36); MEAN CORPUSCULAR VOLUME 97 fL (79.0-98.0); MONOCYTES # (AUTO) 1.7 K/uL (0.0-1.0); MONOCYTES % (AUTO) 13.6 % (1.7-9.3); PLATELET COUNT (AUTO) 152 K/uL (130-430); RED BLOOD CELL COUNT(AUTO) 3.53 MIL/uL (4.2-6.2); RED CELL DISTRIBUTION WIDTH 15.7 % (9.0-15.0); WHITE BLOOD COUNT (AUTO) 12.7 K/uL (4.8-10.8)
[2020-08-27 06:48] LABS: ANION GAP 8 (5-15); CALCIUM 7.6 mg/dL (8.4-11.0); CHLORIDE 102 mmol/L (98-107); CREATININE 0.75 mg/dL (0.55-1.30); GLUCOSE 144 mg/dL (70-99); POTASSIUM 3.3 mmol/L (3.5-5.1); SODIUM SERUM 136 mmol/L (136-145); UREA NITROGEN, BLOOD 38 mg/dL (8-21)
[2020-08-27] MEDS: METOPROLOL TARTRATE 50 MG TABLET PO SCH (09:00)
[2020-08-27] MEDS: CHOLESTYRAMINE/SUCROSE 4 GM/PACKET PO SCH ×2 (09:15→21:15)
[2020-08-27] MEDS: ENOXAPARIN SODIUM 40 MG/0.4 ML SYRINGE SUBCUT SCH (09:15)
[2020-08-27] MEDS: LOSARTAN POTASSIUM 25 MG TABLET PO SCH (09:16)
[2020-08-27] MEDS: FUROSEMIDE 40 MG/4 ML VIAL IVP SCH ×2 (09:16→21:15)
[2020-08-27 11:49] LABS: ERYTHROCYTE SEDIMENTATION RATE 52 MM/HR (0-15)
[2020-08-27 15:03] LABS: NEUTROPHILS % (AUTO) 78.9 % (40.0-70.0)
[2020-08-27] MEDS: DILTIAZEM HCL 60 MG TABLET PO SCH ×2 (15:22→21:15)
[2020-08-27] MEDS ORDERED: KCL 40 mEq in 100 mL (PREMIX) 100 ML IV ONE (16:15)
[2020-08-28] VITALS (28 sets, daily range): BP systolic 95–128
[2020-08-28] MEDS: PIPERACILLIN/TAZO 3.375/DEX-IS 50 ML IV SCH ×3 (05:25→18:42)
[2020-08-28] MEDS: DILTIAZEM HCL 60 MG TABLET PO SCH ×3 (05:26→21:54)
[2020-08-28 06:48] LABS: BASOPHILS % (AUTO) 0.2 % (0.0-2.0); EOSINOPHILS # (AUTO) 0.1 K/uL (0.0-0.4); EOSINOPHILS % (AUTO) 0.8 % (0.0-4.0); HEMATOCRIT 33.4 % (36-54); HEMOGLOBIN 11.1 g/dL (14.0-18.0); LYMPHOCYTES # (AUTO) 0.9 K/uL (1.0-5.5); LYMPHOCYTES % (AUTO) 7.5 % (20.5-51.5); MEAN CORPUSCULAR HEMOGLOBIN 32 pg (27-31); MEAN CORPUSCULAR HGB CONC 33 % (32-36); MEAN CORPUSCULAR VOLUME 96 fL (79.0-98.0); MONOCYTES # (AUTO) 1.2 K/uL (0.0-1.0); NEUTROPHILS # (AUTO) 9.5 K/uL (1.8-7.7); NEUTROPHILS % (AUTO) 81.5 % (40.0-70.0); PLATELET COUNT (AUTO) 134 K/uL (130-430); RED BLOOD CELL COUNT(AUTO) 3.47 MIL/uL (4.2-6.2); RED CELL DISTRIBUTION WIDTH 16.1 % (9.0-15.0); WHITE BLOOD COUNT (AUTO) 11.7 K/uL (4.8-10.8)
[2020-08-28 07:27] LABS: ALANINE AMINOTRANSFERASE 30 U/L (12-78); ALBUMIN 1.5 g/dL (3.4-4.8); ANION GAP 7 (5-15); ASPARTATE AMINOTRANSFERASE 27 U/L (10-37); CALCIUM 7.8 mg/dL (8.4-11.0); CHLORIDE 102 mmol/L (98-107); GLUCOSE 137 mg/dL (70-99); POTASSIUM 3.2 mmol/L (3.5-5.1); SODIUM SERUM 138 mmol/L (136-145); UREA NITROGEN, BLOOD 35 mg/dL (8-21)
[2020-08-28] MEDS ORDERED: PROPOFOL DRIP 100 ML IV PRN (07:30)
[2020-08-28] MEDS ORDERED: MORPHINE I.V. DRIP 100 ML IV PRN (07:30)
[2020-08-28 07:50] LABS: C-REACTIVE PROTEIN QUANT 8.5 mg/dL (0-0.5)
[2020-08-28] MEDS: FUROSEMIDE 40 MG/4 ML VIAL IVP SCH ×2 (09:50→21:53)
[2020-08-28] MEDS: LOSARTAN POTASSIUM 25 MG TABLET PO SCH (09:50)
[2020-08-28] MEDS: CHOLESTYRAMINE/SUCROSE 4 GM/PACKET PO SCH ×2 (09:50→21:54)
[2020-08-28] MEDS: ENOXAPARIN SODIUM 40 MG/0.4 ML SYRINGE SUBCUT SCH (09:54)
[2020-08-28] MEDS: METOPROLOL TARTRATE 50 MG TABLET PO SCH (09:56)
[2020-08-28 10:03] LABS: ERYTHROCYTE SEDIMENTATION RATE 72 MM/HR (0-15)
[2020-08-28] MEDS ORDERED: KCL 20 mEq in 100 mL (PREMIX) 100 ML IV ONE ×2 (13:15→16:55)
[2020-08-29] VITALS (18 sets, daily range): BP systolic 105–155
[2020-08-29] MEDS: PIPERACILLIN/TAZO 3.375/DEX-IS 50 ML IV SCH ×4 (01:11→18:07)
[2020-08-29] MEDS: DILTIAZEM HCL 60 MG TABLET PO SCH ×2 (06:00→14:04)
[2020-08-29 06:55] LABS: BASOPHILS % (AUTO) 0.3 % (0.0-2.0); EOSINOPHILS % (AUTO) 0.2 % (0.0-4.0); HEMATOCRIT 32.7 % (36-54); HEMOGLOBIN 10.9 g/dL (14.0-18.0); LYMPHOCYTES # (AUTO) 0.4 K/uL (1.0-5.5); LYMPHOCYTES % (AUTO) 2.8 % (20.5-51.5); MEAN CORPUSCULAR HEMOGLOBIN 32 pg (27-31); MEAN CORPUSCULAR HGB CONC 34 % (32-36); MEAN CORPUSCULAR VOLUME 96 fL (79.0-98.0); MONOCYTES # (AUTO) 0.9 K/uL (0.0-1.0); MONOCYTES % (AUTO) 6.7 % (1.7-9.3); NEUTROPHILS # (AUTO) 12.8 K/uL (1.8-7.7); PLATELET COUNT (AUTO) 141 K/uL (130-430); RED BLOOD CELL COUNT(AUTO) 3.41 MIL/uL (4.2-6.2); RED CELL DISTRIBUTION WIDTH 16.2 % (9.0-15.0); WHITE BLOOD COUNT (AUTO) 14.2 K/uL (4.8-10.8)
[2020-08-29 07:00] LABS: CALCIUM 8.1 mg/dL (8.4-11.0); CHLORIDE 102 mmol/L (98-107); CREATININE 0.73 mg/dL (0.55-1.30); GLUCOSE 134 mg/dL (70-99); POTASSIUM 3.1 mmol/L (3.5-5.1); SODIUM SERUM 139 mmol/L (136-145); UREA NITROGEN, BLOOD 28 mg/dL (8-21)
[2020-08-29 08:45] LABS: ANION GAP 9 (5-15)
[2020-08-29 10:32] LABS: ERYTHROCYTE SEDIMENTATION RATE 90 MM/HR (0-15)
[2020-08-29] MEDS: LOSARTAN POTASSIUM 25 MG TABLET PO SCH (10:41)
[2020-08-29] MEDS: CHOLESTYRAMINE/SUCROSE 4 GM/PACKET PO SCH ×2 (10:42→21:00)
[2020-08-29] MEDS: METOPROLOL TARTRATE 50 MG TABLET PO SCH (10:42)
[2020-08-29] MEDS: FUROSEMIDE 40 MG/4 ML VIAL IVP SCH ×2 (10:47→21:52)
[2020-08-29] MEDS: ENOXAPARIN SODIUM 40 MG/0.4 ML SYRINGE SUBCUT SCH (10:48)
[2020-08-29 10:58] LABS: C-REACTIVE PROTEIN QUANT 9.4 mg/dL (0-0.5)
[2020-08-29] MEDS ORDERED: KCL 20 mEq in 100 mL (PREMIX) 100 ML IV ONE (16:15)
[2020-08-29] MEDS: DILTIAZEM HCL 25 MG/5 ML VIAL IVP SCH (18:14)
[2020-08-29] MEDS: METOPROLOL TARTRATE 5 MG/5 ML VIAL IVP SCH (21:56)
[2020-08-30] VITALS (25 sets, daily range): BP systolic 98–145
[2020-08-30] MEDS: PIPERACILLIN/TAZO 3.375/DEX-IS 50 ML IV SCH ×5 (01:38→23:49)
[2020-08-30] MEDS: DILTIAZEM HCL 25 MG/5 ML VIAL IVP SCH ×5 (01:41→23:48)
[2020-08-30] MEDS: METOPROLOL TARTRATE 5 MG/5 ML VIAL IVP SCH (06:52)
[2020-08-30 07:06] LABS: BASOPHILS % (AUTO) 0.4 % (0.0-2.0); EOSINOPHILS # (AUTO) 0.1 K/uL (0.0-0.4); EOSINOPHILS % (AUTO) 0.7 % (0.0-4.0); HEMATOCRIT 31.7 % (36-54); HEMOGLOBIN 10.6 g/dL (14.0-18.0); LYMPHOCYTES # (AUTO) 0.5 K/uL (1.0-5.5); MEAN CORPUSCULAR HEMOGLOBIN 32 pg (27-31); MEAN CORPUSCULAR HGB CONC 34 % (32-36); MEAN CORPUSCULAR VOLUME 96 fL (79.0-98.0); MONOCYTES # (AUTO) 0.8 K/uL (0.0-1.0); MONOCYTES % (AUTO) 6.5 % (1.7-9.3); NEUTROPHILS # (AUTO) 11.5 K/uL (1.8-7.7); NEUTROPHILS % (AUTO) 88.4 % (40.0-70.0); PLATELET COUNT (AUTO) 152 K/uL (130-430); RED BLOOD CELL COUNT(AUTO) 3.29 MIL/uL (4.2-6.2); RED CELL DISTRIBUTION WIDTH 16.3 % (9.0-15.0); WHITE BLOOD COUNT (AUTO) 13.1 K/uL (4.8-10.8)
[2020-08-30 07:18] LABS: ANION GAP 7 (5-15); CHLORIDE 102 mmol/L (98-107); CREATININE 0.73 mg/dL (0.55-1.30); GLUCOSE 108 mg/dL (70-99); SODIUM SERUM 141 mmol/L (136-145); UREA NITROGEN, BLOOD 26 mg/dL (8-21)
[2020-08-30 07:59] LABS: ERYTHROCYTE SEDIMENTATION RATE 87 MM/HR (0-15)
[2020-08-30 08:16] LABS: POTASSIUM 2.7 mmol/L (3.5-5.1)
[2020-08-30 08:52] LABS: C-REACTIVE PROTEIN QUANT 7.6 mg/dL (0-0.5)
[2020-08-30] MEDS ORDERED: KCL 40 mEq in 100 mL (PREMIX) 100 ML IV ONE (09:00)
[2020-08-30] MEDS ORDERED: METOPROLOL TARTRATE 5 MG/5 ML VIAL IVP PRN (09:30)
[2020-08-30] MEDS: CHOLESTYRAMINE/SUCROSE 4 GM/PACKET PO SCH ×2 (10:05→20:24)
[2020-08-30] MEDS: FUROSEMIDE 40 MG/4 ML VIAL IVP SCH ×2 (10:05→20:24)
[2020-08-30] MEDS: POTASSIUM CHLORIDE 40 MEQ in NS 250 ML IV SCH ×2 (10:06→13:22)
[2020-08-30] MEDS: ENOXAPARIN SODIUM 40 MG/0.4 ML SYRINGE SUBCUT SCH (13:20)
[2020-08-31] VITALS (15 sets, daily range): BP systolic 114–146
[2020-08-31 06:46] LABS: BASOPHILS % (AUTO) 0.3 % (0.0-2.0); EOSINOPHILS # (AUTO) 0.1 K/uL (0.0-0.4); EOSINOPHILS % (AUTO) 0.8 % (0.0-4.0); HEMATOCRIT 31.7 % (36-54); HEMOGLOBIN 10.5 g/dL (14.0-18.0); LYMPHOCYTES # (AUTO) 0.5 K/uL (1.0-5.5); LYMPHOCYTES % (AUTO) 4.4 % (20.5-51.5); MEAN CORPUSCULAR HEMOGLOBIN 32 pg (27-31); MEAN CORPUSCULAR HGB CONC 33 % (32-36); MEAN CORPUSCULAR VOLUME 97 fL (79.0-98.0); MONOCYTES # (AUTO) 0.8 K/uL (0.0-1.0); MONOCYTES % (AUTO) 6.9 % (1.7-9.3); NEUTROPHILS # (AUTO) 10.8 K/uL (1.8-7.7); NEUTROPHILS % (AUTO) 87.6 % (40.0-70.0); PLATELET COUNT (AUTO) 143 K/uL (130-430); RED BLOOD CELL COUNT(AUTO) 3.26 MIL/uL (4.2-6.2); RED CELL DISTRIBUTION WIDTH 16.2 % (9.0-15.0); WHITE BLOOD COUNT (AUTO) 12.3 K/uL (4.8-10.8)
[2020-08-31 07:16] LABS: ALANINE AMINOTRANSFERASE 20 U/L (12-78); ALBUMIN 1.5 g/dL (3.4-4.8); ANION GAP 6 (5-15); ASPARTATE AMINOTRANSFERASE 21 U/L (10-37); CHLORIDE 105 mmol/L (98-107); CREATININE 0.81 mg/dL (0.55-1.30); GLUCOSE 95 mg/dL (70-99); POTASSIUM 3.2 mmol/L (3.5-5.1); SODIUM SERUM 144 mmol/L (136-145); TOTAL BILIRUBIN 1.1 mg/dL (0.0-1.0); UREA NITROGEN, BLOOD 24 mg/dL (8-21)
[2020-08-31] MEDS: PIPERACILLIN/TAZO 3.375/DEX-IS 50 ML IV SCH ×3 (07:22→17:13)
[2020-08-31] MEDS: DILTIAZEM HCL 25 MG/5 ML VIAL IVP SCH ×3 (07:23→17:13)
[2020-08-31] MEDS: FUROSEMIDE 40 MG/4 ML VIAL IVP SCH ×2 (08:31→21:00)
[2020-08-31] MEDS: CHOLESTYRAMINE/SUCROSE 4 GM/PACKET PO SCH ×3 (08:31→21:00)
[2020-08-31] MEDS: ENOXAPARIN SODIUM 40 MG/0.4 ML SYRINGE SUBCUT SCH (08:32)
[2020-08-31] MEDS ORDERED: POTASSIUM CHLORIDE 40 MEQ in NS 250 ML IV ONE (09:15)
[2020-08-31 10:06] LABS: C-REACTIVE PROTEIN QUANT 5.8 mg/dL (0-0.5)
[2020-08-31] MEDS ORDERED: KCL 20 mEq in 100 mL (PREMIX) 100 ML IV ONE (13:00)
[2020-09-01] VITALS: BP_SYST 126
[2020-09-01 00:10] LABS: ERYTHROCYTE SEDIMENTATION RATE 85 MM/HR (0-15)
[2020-09-01] MEDS: DILTIAZEM HCL 25 MG/5 ML VIAL IVP SCH ×4 (01:18→18:00)
[2020-09-01 04:15] VITALS: BP_SYST 132
[2020-09-01 07:08] LABS: BASOPHILS # (AUTO) 0.1 K/uL (0.0-0.2); BASOPHILS % (AUTO) 0.4 % (0.0-2.0); EOSINOPHILS # (AUTO) 0.1 K/uL (0.0-0.4); EOSINOPHILS % (AUTO) 0.8 % (0.0-4.0); HEMATOCRIT 32.3 % (36-54); HEMOGLOBIN 10.8 g/dL (14.0-18.0); LYMPHOCYTES # (AUTO) 0.5 K/uL (1.0-5.5); LYMPHOCYTES % (AUTO) 3.6 % (20.5-51.5); MEAN CORPUSCULAR HEMOGLOBIN 33 pg (27-31); MEAN CORPUSCULAR HGB CONC 34 % (32-36); MEAN CORPUSCULAR VOLUME 97 fL (79.0-98.0); MONOCYTES # (AUTO) 0.7 K/uL (0.0-1.0); MONOCYTES % (AUTO) 5.7 % (1.7-9.3); NEUTROPHILS # (AUTO) 11.3 K/uL (1.8-7.7); NEUTROPHILS % (AUTO) 89.5 % (40.0-70.0); PLATELET COUNT (AUTO) 161 K/uL (130-430); RED BLOOD CELL COUNT(AUTO) 3.33 MIL/uL (4.2-6.2); RED CELL DISTRIBUTION WIDTH 16.6 % (9.0-15.0); WHITE BLOOD COUNT (AUTO) 12.6 K/uL (4.8-10.8)
[2020-09-01 07:55] LABS: ALANINE AMINOTRANSFERASE 26 U/L (12-78); ALBUMIN 1.7 g/dL (3.4-4.8); ANION GAP 9 (5-15); ASPARTATE AMINOTRANSFERASE 24 U/L (10-37); CALCIUM 7.9 mg/dL (8.4-11.0); CHLORIDE 105 mmol/L (98-107); CREATININE 0.68 mg/dL (0.55-1.30); GLUCOSE 109 mg/dL (70-99); SODIUM SERUM 145 mmol/L (136-145); UREA NITROGEN, BLOOD 23 mg/dL (8-21)
[2020-09-01 08:21] LABS: POTASSIUM 2.4 mmol/L (3.5-5.1)
[2020-09-01] MEDS ORDERED: POTASSIUM CHLORIDE 40 MEQ in NS 250 ML IV ONE (08:45)
[2020-09-01] MEDS: ENOXAPARIN SODIUM 40 MG/0.4 ML SYRINGE SUBCUT SCH (09:00)
[2020-09-01] MEDS: FUROSEMIDE 40 MG/4 ML VIAL IVP SCH ×2 (09:00→21:00)
[2020-09-01] MEDS: CHOLESTYRAMINE/SUCROSE 4 GM/PACKET PO SCH ×2 (09:00→21:00)
[2020-09-01 09:38] LABS: C-REACTIVE PROTEIN QUANT 5.3 mg/dL (0-0.5)
[2020-09-01] MEDS: KCL 40 mEq in 100 mL (PREMIX) 100 ML IV SCH ×2 (10:30→15:36)
[2020-09-01 11:00] VITALS: BP_SYST 155
[2020-09-01 13:54] LABS: ERYTHROCYTE SEDIMENTATION RATE 83 MM/HR (0-15)
[2020-09-01 15:25] VITALS: BP_SYST 134
[2020-09-01 16:00] VITALS: BP_SYST 145
[2020-09-01 20:00] VITALS: BP_SYST 132
[2020-09-02] VITALS: BP_SYST 153
[2020-09-02] MEDS: DILTIAZEM HCL 25 MG/5 ML VIAL IVP SCH ×4 (06:59→18:00)
[2020-09-02 08:23] LABS: ANION GAP 7 (5-15); CALCIUM 8.3 mg/dL (8.4-11.0); CHLORIDE 108 mmol/L (98-107); CREATININE 0.66 mg/dL (0.55-1.30); GLUCOSE 106 mg/dL (70-99); SODIUM SERUM 147 mmol/L (136-145); UREA NITROGEN, BLOOD 21 mg/dL (8-21)
[2020-09-02] MEDS: FUROSEMIDE 40 MG/4 ML VIAL IVP SCH ×2 (09:00→21:00)
[2020-09-02] MEDS: ENOXAPARIN SODIUM 40 MG/0.4 ML SYRINGE SUBCUT SCH (09:00)
[2020-09-02] MEDS: CHOLESTYRAMINE/SUCROSE 4 GM/PACKET PO SCH ×2 (09:00→21:00)
[2020-09-02 09:12] LABS: BASOPHILS % (AUTO) 0.4 % (0.0-2.0); EOSINOPHILS # (AUTO) 0.1 K/uL (0.0-0.4); HEMATOCRIT 33.5 % (36-54); HEMOGLOBIN 11.1 g/dL (14.0-18.0); LYMPHOCYTES # (AUTO) 0.6 K/uL (1.0-5.5); LYMPHOCYTES % (AUTO) 4.8 % (20.5-51.5); MEAN CORPUSCULAR HEMOGLOBIN 32 pg (27-31); MEAN CORPUSCULAR HGB CONC 33 % (32-36); MEAN CORPUSCULAR VOLUME 98 fL (79.0-98.0); MONOCYTES # (AUTO) 0.8 K/uL (0.0-1.0); MONOCYTES % (AUTO) 6.8 % (1.7-9.3); PLATELET COUNT (AUTO) 167 K/uL (130-430); RED BLOOD CELL COUNT(AUTO) 3.43 MIL/uL (4.2-6.2); RED CELL DISTRIBUTION WIDTH 16.4 % (9.0-15.0); WHITE BLOOD COUNT (AUTO) 11.5 K/uL (4.8-10.8)
[2020-09-02 10:42] LABS: ERYTHROCYTE SEDIMENTATION RATE 71 MM/HR (0-15)
[2020-09-02 11:37] LABS: C-REACTIVE PROTEIN QUANT 4.2 mg/dL (0-0.5)
[2020-09-02 12:00] VITALS: BP_SYST 148
[2020-09-02 12:07] VITALS: BP_SYST 155
[2020-09-02 16:00] VITALS: BP_SYST 160
[2020-09-02 20:00] VITALS: BP_SYST 147
[2020-09-03 00:14] VITALS: BP_SYST 140
[2020-09-03] MEDS: DILTIAZEM HCL 25 MG/5 ML VIAL IVP SCH ×4 (01:30→18:00)
[2020-09-03 08:00] VITALS: BP_SYST 126
[2020-09-03] MEDS: FUROSEMIDE 40 MG/4 ML VIAL IVP SCH ×2 (09:00→21:00)
[2020-09-03] MEDS: CHOLESTYRAMINE/SUCROSE 4 GM/PACKET PO SCH ×2 (09:26→21:00)
[2020-09-03] MEDS: ENOXAPARIN SODIUM 40 MG/0.4 ML SYRINGE SUBCUT SCH (09:29)
[2020-09-03 12:54] VITALS: BP_SYST 136
[2020-09-03 18:00] VITALS: BP_SYST 140
[2020-09-03 19:30] LABS: BASOPHILS # (AUTO) 0.1 K/uL (0.0-0.2); EOSINOPHILS # (AUTO) 0.1 K/uL (0.0-0.4); HEMATOCRIT 35.4 % (36-54); HEMOGLOBIN 11.8 g/dL (14.0-18.0); LYMPHOCYTES # (AUTO) 0.5 K/uL (1.0-5.5); LYMPHOCYTES % (AUTO) 5.5 % (20.5-51.5); MEAN CORPUSCULAR HEMOGLOBIN 32 pg (27-31); MEAN CORPUSCULAR HGB CONC 33 % (32-36); MEAN CORPUSCULAR VOLUME 97 fL (79.0-98.0); MONOCYTES # (AUTO) 0.5 K/uL (0.0-1.0); MONOCYTES % (AUTO) 5.2 % (1.7-9.3); NEUTROPHILS # (AUTO) 8.4 K/uL (1.8-7.7); NEUTROPHILS % (AUTO) 87.3 % (40.0-70.0); PLATELET COUNT (AUTO) 178 K/uL (130-430); RED BLOOD CELL COUNT(AUTO) 3.66 MIL/uL (4.2-6.2); RED CELL DISTRIBUTION WIDTH 16.1 % (9.0-15.0); WHITE BLOOD COUNT (AUTO) 9.6 K/uL (4.8-10.8)
[2020-09-03 19:43] LABS: ANION GAP 6 (5-15); CALCIUM 8.5 mg/dL (8.4-11.0); CHLORIDE 106 mmol/L (98-107); GLUCOSE 100 mg/dL (70-99); SODIUM SERUM 146 mmol/L (136-145); UREA NITROGEN, BLOOD 20 mg/dL (8-21)
[2020-09-03 20:05] LABS: POTASSIUM 2.6 mmol/L (3.5-5.1)
[2020-09-03 20:08] LABS: C-REACTIVE PROTEIN QUANT 5.1 mg/dL (0-0.5)
[2020-09-03 20:42] LABS: ERYTHROCYTE SEDIMENTATION RATE 59 MM/HR (0-15)
[2020-09-03 22:30] VITALS: BP_SYST 151
[2020-09-03] MEDS ORDERED: POTASSIUM CHLORIDE 60 MEQ in NS 250 ML IV ONE (23:15)
[2020-09-04 00:01] VITALS: BP_SYST 130
[2020-09-04] MEDS: DILTIAZEM HCL 25 MG/5 ML VIAL IVP SCH ×4 (00:06→18:17)
[2020-09-04] MEDS: KCL 20 mEq in 100 mL (PREMIX) 100 ML IV SCH ×3 (02:21→03:30)
[2020-09-04 08:50] LABS: ALANINE AMINOTRANSFERASE 54 U/L (12-78); ALBUMIN 1.9 g/dL (3.4-4.8); ASPARTATE AMINOTRANSFERASE 39 U/L (10-37); CALCIUM 8.6 mg/dL (8.4-11.0); CHLORIDE 108 mmol/L (98-107); CREATININE 0.63 mg/dL (0.55-1.30); GLUCOSE 93 mg/dL (70-99); POTASSIUM 3.7 mmol/L (3.5-5.1); SODIUM SERUM 147 mmol/L (136-145); TOTAL BILIRUBIN 0.8 mg/dL (0.0-1.0); UREA NITROGEN, BLOOD 21 mg/dL (8-21)
[2020-09-04] MEDS: CHOLESTYRAMINE/SUCROSE 4 GM/PACKET PO SCH ×2 (08:57→22:00)
[2020-09-04 09:19] LABS: ANION GAP 7 (5-15)
[2020-09-04] MEDS: ENOXAPARIN SODIUM 40 MG/0.4 ML SYRINGE SUBCUT SCH (09:27)
[2020-09-04] MEDS: FUROSEMIDE 40 MG/4 ML VIAL IVP SCH ×2 (09:28→22:01)
[2020-09-04 09:40] VITALS: BP_SYST 126
[2020-09-04 12:10] VITALS: BP_SYST 124
[2020-09-04 16:00] VITALS: BP_SYST 125
[2020-09-04 18:17] VITALS: BP_SYST 147
[2020-09-04 20:39] VITALS: BP_SYST 134
[2020-09-04] MEDS: MIRTAZAPINE 15 MG TABLET PO SCH (21:00)
[2020-09-05 00:01] VITALS: BP_SYST 127
[2020-09-05] MEDS: DILTIAZEM HCL 25 MG/5 ML VIAL IVP SCH ×4 (00:06→18:00)
[2020-09-05 08:13] LABS: ANION GAP 8 (5-15); CALCIUM 8.7 mg/dL (8.4-11.0); CHLORIDE 108 mmol/L (98-107); CREATININE 0.62 mg/dL (0.55-1.30); GLUCOSE 87 mg/dL (70-99); POTASSIUM 3.3 mmol/L (3.5-5.1); SODIUM SERUM 145 mmol/L (136-145); UREA NITROGEN, BLOOD 22 mg/dL (8-21)
[2020-09-05 09:16] LABS: BASOPHILS # (AUTO) 0.1 K/uL (0.0-0.2); EOSINOPHILS # (AUTO) 0.4 K/uL (0.0-0.4); EOSINOPHILS % (AUTO) 4.3 % (0.0-4.0); HEMATOCRIT 35.9 % (36-54); HEMOGLOBIN 11.8 g/dL (14.0-18.0); LYMPHOCYTES # (AUTO) 0.9 K/uL (1.0-5.5); LYMPHOCYTES % (AUTO) 10.7 % (20.5-51.5); MEAN CORPUSCULAR HEMOGLOBIN 32 pg (27-31); MEAN CORPUSCULAR HGB CONC 33 % (32-36); MEAN CORPUSCULAR VOLUME 98 fL (79.0-98.0); MONOCYTES # (AUTO) 0.6 K/uL (0.0-1.0); MONOCYTES % (AUTO) 7.4 % (1.7-9.3); NEUTROPHILS # (AUTO) 6.6 K/uL (1.8-7.7); NEUTROPHILS % (AUTO) 76.6 % (40.0-70.0); PLATELET COUNT (AUTO) 194 K/uL (130-430); RED BLOOD CELL COUNT(AUTO) 3.68 MIL/uL (4.2-6.2); RED CELL DISTRIBUTION WIDTH 16.6 % (9.0-15.0); WHITE BLOOD COUNT (AUTO) 8.6 K/uL (4.8-10.8)
[2020-09-05] MEDS: CHOLESTYRAMINE/SUCROSE 4 GM/PACKET PO SCH ×2 (10:16→21:00)
[2020-09-05] MEDS: ENOXAPARIN SODIUM 40 MG/0.4 ML SYRINGE SUBCUT SCH (10:16)
[2020-09-05] MEDS: FUROSEMIDE 40 MG/4 ML VIAL IVP SCH ×2 (10:16→21:00)
[2020-09-05 11:04] VITALS: BP_SYST 110
[2020-09-05 12:00] VITALS: BP_SYST 131
[2020-09-05 13:15] VITALS: BP_SYST 110
[2020-09-05] MEDS ORDERED: POTASSIUM CHLORIDE 20 MEQ TAB.PRT.SR PO ONE (15:15)
[2020-09-05 15:33] VITALS: BP_SYST 128
[2020-09-05 19:55] VITALS: BP_SYST 135
[2020-09-05] MEDS: MIRTAZAPINE 15 MG TABLET PO SCH (21:00)
[2020-09-06] VITALS: BP_SYST 135
[2020-09-06] MEDS: DILTIAZEM HCL 25 MG/5 ML VIAL IVP SCH ×4 (06:00→18:22)
[2020-09-06 08:00] VITALS: BP_SYST 153
[2020-09-06 08:14] LABS: BASOPHILS # (AUTO) 0.1 K/uL (0.0-0.2); EOSINOPHILS # (AUTO) 0.4 K/uL (0.0-0.4); EOSINOPHILS % (AUTO) 4.8 % (0.0-4.0); HEMATOCRIT 35.3 % (36-54); HEMOGLOBIN 11.7 g/dL (14.0-18.0); LYMPHOCYTES # (AUTO) 0.7 K/uL (1.0-5.5); LYMPHOCYTES % (AUTO) 9.7 % (20.5-51.5); MEAN CORPUSCULAR HEMOGLOBIN 33 pg (27-31); MEAN CORPUSCULAR HGB CONC 33 % (32-36); MEAN CORPUSCULAR VOLUME 98 fL (79.0-98.0); MONOCYTES # (AUTO) 0.6 K/uL (0.0-1.0); MONOCYTES % (AUTO) 8.1 % (1.7-9.3); NEUTROPHILS # (AUTO) 5.7 K/uL (1.8-7.7); NEUTROPHILS % (AUTO) 76.4 % (40.0-70.0); PLATELET COUNT (AUTO) 208 K/uL (130-430); RED BLOOD CELL COUNT(AUTO) 3.61 MIL/uL (4.2-6.2); RED CELL DISTRIBUTION WIDTH 16.3 % (9.0-15.0); WHITE BLOOD COUNT (AUTO) 7.4 K/uL (4.8-10.8)
[2020-09-06 08:29] LABS: ANION GAP 5 (5-15); CALCIUM 8.6 mg/dL (8.4-11.0); CHLORIDE 108 mmol/L (98-107); CREATININE 0.55 mg/dL (0.55-1.30); GLUCOSE 93 mg/dL (70-99); POTASSIUM 3.4 mmol/L (3.5-5.1); SODIUM SERUM 144 mmol/L (136-145); UREA NITROGEN, BLOOD 18 mg/dL (8-21)
[2020-09-06] MEDS: CHOLESTYRAMINE/SUCROSE 4 GM/PACKET PO SCH ×2 (09:57→21:00)
[2020-09-06] MEDS: FUROSEMIDE 40 MG/4 ML VIAL IVP SCH ×2 (09:57→21:00)
[2020-09-06] MEDS: ENOXAPARIN SODIUM 40 MG/0.4 ML SYRINGE SUBCUT SCH (09:58)
[2020-09-06 12:00] VITALS: BP_SYST 133
[2020-09-06 16:00] VITALS: BP_SYST 114
[2020-09-06] MEDS: LORazepam 2 MG/ML VIAL IVP PRN (17:55)
[2020-09-06 19:50] VITALS: BP_SYST 138
[2020-09-06] MEDS: MIRTAZAPINE 15 MG TABLET PO SCH (21:00)
[2020-09-07] VITALS: BP_SYST 139
[2020-09-07] MEDS: LORazepam 2 MG/ML VIAL IVP PRN (02:00)
[2020-09-07] MEDS: DILTIAZEM HCL 25 MG/5 ML VIAL IVP SCH ×4 (06:00→16:58)
[2020-09-07 08:01] LABS: BASOPHILS # (AUTO) 0.1 K/uL (0.0-0.2); BASOPHILS % (AUTO) 0.9 % (0.0-2.0); EOSINOPHILS # (AUTO) 0.4 K/uL (0.0-0.4); EOSINOPHILS % (AUTO) 4.5 % (0.0-4.0); HEMATOCRIT 37.4 % (36-54); HEMOGLOBIN 12.7 g/dL (14.0-18.0); LYMPHOCYTES # (AUTO) 0.8 K/uL (1.0-5.5); LYMPHOCYTES % (AUTO) 9.8 % (20.5-51.5); MEAN CORPUSCULAR HEMOGLOBIN 33 pg (27-31); MEAN CORPUSCULAR HGB CONC 34 % (32-36); MEAN CORPUSCULAR VOLUME 97 fL (79.0-98.0); MONOCYTES # (AUTO) 0.8 K/uL (0.0-1.0); MONOCYTES % (AUTO) 10.7 % (1.7-9.3); NEUTROPHILS # (AUTO) 5.7 K/uL (1.8-7.7); NEUTROPHILS % (AUTO) 74.1 % (40.0-70.0); PLATELET COUNT (AUTO) 251 K/uL (130-430); RED BLOOD CELL COUNT(AUTO) 3.86 MIL/uL (4.2-6.2); RED CELL DISTRIBUTION WIDTH 16.3 % (9.0-15.0); WHITE BLOOD COUNT (AUTO) 7.7 K/uL (4.8-10.8)
[2020-09-07 08:16] LABS: ALANINE AMINOTRANSFERASE 52 U/L (12-78); ALBUMIN 2.4 g/dL (3.4-4.8); ANION GAP 8 (5-15); ASPARTATE AMINOTRANSFERASE 28 U/L (10-37); CALCIUM 8.8 mg/dL (8.4-11.0); CHLORIDE 107 mmol/L (98-107); CREATININE 0.68 mg/dL (0.55-1.30); GLUCOSE 92 mg/dL (70-99); POTASSIUM 3.2 mmol/L (3.5-5.1); SODIUM SERUM 147 mmol/L (136-145); TOTAL BILIRUBIN 1.2 mg/dL (0.0-1.0); UREA NITROGEN, BLOOD 18 mg/dL (8-21)
[2020-09-07 08:37] LABS: C-REACTIVE PROTEIN QUANT 3.4 mg/dL (0-0.5)
[2020-09-07] MEDS: ENOXAPARIN SODIUM 40 MG/0.4 ML SYRINGE SUBCUT SCH (08:46)
[2020-09-07] MEDS: CHOLESTYRAMINE/SUCROSE 4 GM/PACKET PO SCH ×2 (08:46→21:00)
[2020-09-07 08:48] VITALS: BP_SYST 153
[2020-09-07] MEDS: FUROSEMIDE 40 MG/4 ML VIAL IVP SCH ×2 (09:17→22:00)
[2020-09-07 11:05] LABS: ERYTHROCYTE SEDIMENTATION RATE 62 MM/HR (0-15)
[2020-09-07 11:08] VITALS: BP_SYST 147
[2020-09-07 16:10] VITALS: BP_SYST 133
[2020-09-07 20:00] VITALS: BP_SYST 155
[2020-09-07] MEDS: MIRTAZAPINE 15 MG TABLET PO SCH (21:00)
[2020-09-08] VITALS (7 sets, daily range): BP systolic 121–138
[2020-09-08] MEDS: DILTIAZEM HCL 25 MG/5 ML VIAL IVP SCH ×4 (00:45→18:00)
[2020-09-08 08:04] LABS: BASOPHILS # (AUTO) 0.1 K/uL (0.0-0.2); BASOPHILS % (AUTO) 0.8 % (0.0-2.0); EOSINOPHILS # (AUTO) 0.4 K/uL (0.0-0.4); EOSINOPHILS % (AUTO) 5.1 % (0.0-4.0); HEMATOCRIT 34.8 % (36-54); HEMOGLOBIN 11.5 g/dL (14.0-18.0); LYMPHOCYTES % (AUTO) 13.2 % (20.5-51.5); MEAN CORPUSCULAR HEMOGLOBIN 32 pg (27-31); MEAN CORPUSCULAR HGB CONC 33 % (32-36); MEAN CORPUSCULAR VOLUME 97 fL (79.0-98.0); MONOCYTES # (AUTO) 0.8 K/uL (0.0-1.0); MONOCYTES % (AUTO) 11.8 % (1.7-9.3); NEUTROPHILS % (AUTO) 69.1 % (40.0-70.0); PLATELET COUNT (AUTO) 260 K/uL (130-430); RED BLOOD CELL COUNT(AUTO) 3.58 MIL/uL (4.2-6.2); RED CELL DISTRIBUTION WIDTH 16.1 % (9.0-15.0); WHITE BLOOD COUNT (AUTO) 7.2 K/uL (4.8-10.8)
[2020-09-08 08:07] LABS: ANION GAP 8 (5-15); CALCIUM 8.9 mg/dL (8.4-11.0); CHLORIDE 107 mmol/L (98-107); CREATININE 0.61 mg/dL (0.55-1.30); GLUCOSE 99 mg/dL (70-99); POTASSIUM 3.4 mmol/L (3.5-5.1); SODIUM SERUM 145 mmol/L (136-145); UREA NITROGEN, BLOOD 22 mg/dL (8-21)
[2020-09-08] MEDS ORDERED: METOPROLOL TARTRATE 25 MG TABLET PO SCH (09:00)
[2020-09-08] MEDS: FUROSEMIDE 40 MG/4 ML VIAL IVP SCH (09:49)
[2020-09-08] MEDS: ENOXAPARIN SODIUM 40 MG/0.4 ML SYRINGE SUBCUT SCH (09:49)
[2020-09-08] MEDS: CHOLESTYRAMINE/SUCROSE 4 GM/PACKET PO SCH (09:49)
[2020-09-08] MEDS ORDERED: REM15 PO (17:15)
[2020-09-08] MEDS ORDERED: LOVI40 SUBCUT (17:15)
[2020-09-08] MEDS ORDERED: FURO10VI27 IVP (17:15)
[2020-09-08] MEDS ORDERED: DILT120C89 PO (17:15)
[2020-09-08] MEDS ORDERED: METO25TA6 PO (17:15)
== END 2020-09-08 20:30 | DRG 870 ==
LOC: SED 11:04 → SMU 16:06 → STU 08-14 09:37 → SIC 08-16 07:59 → STU 09-01 05:47
PROVIDERS: ADMIT Preventive Medicine Preventive Medicine/Occupational Environmental Medicine; ATTEND Preventive Medicine Preventive Medicine/Occupational Environmental Medicine
PROC: XW033E5 Introduction of Remdesivir Anti-infective into Peripheral Vein, Percutaneous Approach, New Technology Group 5 (ICD-10-PCS; 2020-08-13)
PROC: 5A1955Z Respiratory Ventilation, Greater than 96 Consecutive Hours (ICD-10-PCS; principal; 2020-08-18)
PROC: 0BH17EZ Insertion of Endotracheal Airway into Trachea, Via Natural or Artificial Opening (ICD-10-PCS; 2020-08-18)
PROC: XW13325 Transfusion of Convalescent Plasma (Nonautologous) into Peripheral Vein, Percutaneous Approach, New Technology Group 5 (ICD-10-PCS; 2020-08-19)
DX: A41.89 Other specified sepsis (principal); U07.1 COVID-19; J96.01 Acute respiratory failure with hypoxia; E43 Unspecified severe protein-calorie malnutrition; I50.23 Acute on chronic systolic (congestive) heart failure; J15.1 Pneumonia due to Pseudomonas; J12.82 Pneumonia due to coronavirus disease 2019; I48.20 Chronic atrial fibrillation, unspecified; K92.2 Gastrointestinal hemorrhage, unspecified; D68.59 Other primary thrombophilia; I42.0 Dilated cardiomyopathy; E87.0 Hyperosmolality and hypernatremia; K56.7 Ileus, unspecified; D68.9 Coagulation defect, unspecified; G93.40 Encephalopathy, unspecified; N17.9 Acute kidney failure, unspecified; Z99.11 Dependence on respirator [ventilator] status; R19.7 Diarrhea, unspecified; C61 Malignant neoplasm of prostate; I25.10 Atherosclerotic heart disease of native coronary artery without angina pectoris; M81.0 Age-related osteoporosis without current pathological fracture; K63.89 Other specified diseases of intestine; K80.20 Calculus of gallbladder without cholecystitis without obstruction; I11.0 Hypertensive heart disease with heart failure; R79.89 Other specified abnormal findings of blood chemistry; E87.6 Hypokalemia; E83.51 Hypocalcemia; D64.9 Anemia, unspecified; K64.9 Unspecified hemorrhoids; Z79.82 Long term (current) use of aspirin; Z79.899 Other long term (current) drug therapy; Z85.46 Personal history of malignant neoplasm of prostate; Z79.01 Long term (current) use of anticoagulants; Z87.891 Personal history of nicotine dependence; Z95.5 Presence of coronary angioplasty implant and graft; Z11.52 Encounter for screening for COVID-19
CPT/HCPCS: 36415; 36600; 71045; 74018; 76376; 76604; 80048; 80053; 80061; 80076; 82272; 82330; 82728; 82803-TC; 82962; 83051; 83615-TC; 83690-TC; 83735-TC; 83880; 84443-TC; 84484; 85014-TC; 85025; 85379; 85384-TC; 85610-TC; 85651-TC; 85730-TC; 86140; 86710; 86886; 86900; 86901; 87040-TC; 87045-TC; 87046; 87070-TC; 87205-TC; 87230-TC; 89055; 92610-GN; 93005; 93306; 94002; 94003; 94640; 94668; 94760; 96365; 96366; 96367; 97110-GP; 97530-GP; 99285; G0378; J1100; J1650; J1940; J1956; J2060; J2270; J2543; J2704; J3370; J3430; J3475; J3480; J3490; J7030; J7040; J7042; J7050; J7060; P9017; U0003